=== PATIENT | female | born 1945 | race Caucasian/White ===

== ENCOUNTER 2022-02-23 13:27 | Emergency (ER) | payer MEDICARE, BC ==
[2022-02-23] MEDS ORDERED: SODIUM CHLORIDE 0.9% 1,000 ML IV STA (13:31)
[2022-02-23 13:39] VITALS: RESP 18
[2022-02-23] MEDS ORDERED: PANTOPRAZOLE 40 MG/10 ML VIAL IVP STA (13:40)
[2022-02-23] MEDS ORDERED: Kcentra PER PHARMACY 1 EACH MISC MISCELLANE PRN (13:59)
[2022-02-23 14:04] LABS: Anisocytosis Slight; Basophils % (A) 0 %; Eosinophils % (A) 0 %; Hypochromasia Marked; Lymphocytes # (A) 0.7 k/uL (1.0-4.8); Lymphocytes % (A) 6 %; MCH 26.9 pg (25.0-35.0); MCV 92.7 fL (80.0-100.0); Mean Platelet Volume 9.6; Monocytes # (A) 0.8 k/uL (0-1.0); Monocytes % (A) 7 %; Neutrophils # (A) 10.4 k/uL (1.3-7.7); Neutrophils % (A) 84 %; Platelet Count 236 k/uL (150-450); RDW 16.4 % (11.5-15.5); WBC 12.4 k/uL (3.8-10.6)
[2022-02-23 14:06] LABS: HCT 18.6 % (34.0-46.0); HGB 5.4 gm/dL (11.4-16.0)
[2022-02-23 14:08] LABS: Albumin 3.3 g/dL (3.5-5.0); Calcium 7.8 mg/dL (8.4-10.2); Magnesium 1.6 mg/dL (1.6-2.3); Total Bilirubin 0.8 mg/dL (0.2-1.3)
[2022-02-23 14:09] LABS: INR 2.8 (<1.2); Partial Thromboplastin Time 25.1 sec (22.0-30.0); Prothrombin Time 27.7 sec (9.0-12.0)
[2022-02-23 14:10] LABS: Potassium 6.4 mmol/L (3.5-5.1)
[2022-02-23 14:29] VITALS: TEMP 97.3
--- NOTE | 2022-02-23 14:41 | XR ---
EXAMINATION TYPE: XR chest 1V portable DATE OF EXAM: 02/23/2022 COMPARISON: NONE HISTORY: Short of breath TECHNIQUE: Single view FINDINGS: Heart is normal. Lungs are clear of infiltrate. There are sternal wires. There are chest le ads. Costophrenic angles show slight blunting on the left side. Thoracic aorta is atheromatous. IMPRESSION: Mild pleural reaction at the left lung base. No heart failure.
[2022-02-23] MEDS ORDERED: EMPTY BAG 1 BAG with HUMAN PROTHROMBIN COMPLX 2,140 UNIT IV ONE (15:00)
[2022-02-23] MEDS ORDERED: HUMAN PROTHROMBIN COMPLX 500 UNIT/16 ML VIAL IV ONE (15:30)
--- NOTE | 2022-02-23 15:35 | CT ---
EXAMINATION TYPE: CT brain wo con DATE OF EXAM: 02/23/2022 COMPARISON: None HISTORY: Pt found hypotensive and altered CT DLP: 1173.4 mGycm Automated exposure control for dose reduction was used. Ventricles have normal size. There is no mass effect or midline shift. There is no sign of intracrani al hemorrhage. Calvarium is intact. There is normal aeration of the mastoid sinuses. IMPRESSION: Mild cerebral atrophy. No acute intracranial abnormality.
[2022-02-23 15:38] VITALS: PULSE 56
--- NOTE | 2022-02-23 15:41 | CT ---
EXAMINATION TYPE: CT abdomen pelvis wo con DATE OF EXAM: 02/23/2022 COMPARISON: None HISTORY: GI bleed, unable to administer contrast due to 12 GFR. Pt found hypotensive and altered CT DLP: 1365.4 mGycm Automated exposure control for dose reduction was used. Images obtained from the diaphragm to the floor the pelvis with no contrast. There is some patchy atelectasis at the lung bases. Heart is enlarged. No pericardial effusion. Liver spleen and stomach pancreas appear intact. There are calcified gallstones. The bile ducts are not di lated. There is no adrenal mass. Kidneys show normal size and contour. There is no hydronephrosis. The urete rs are not dilated. There is no retroperitoneal adenopathy. There is bilateral hip prosthesis with me loi artifact. Bladder distends smoothly. No pelvic mass. There are multiple sigmoid diverticula. No s ign of diverticulitis. Appendix is posterior and appears normal. Lumbar vertebra show no compression fracture. There is mild subluxation deformity at L4-5 and L3-4. T he bony pelvis is intact. No mesenteric edema. No ascites or free air. No bowel obstruction. IMPRESSION: Colonic diverticulosis. No diverticulitis. Normal appendix. Fibrotic changes and atelectasis at the l will bases.
--- NOTE | 2022-02-23 16:02 | ED ---
General Adult HPI - General Chief complaint: GI Bleed Stated complaint: GI Bleed Time Seen by Provider: 02/23/22 13:31 Source: patient, RN notes reviewed, old records reviewed Mode of arrival: ambulatory Limitations: no limitations - History of Present Illness Initial comments: Patient is a 76 year old female with past medical history remarkable for atrial fibrillation on Eliquis presents to the emergency department over concern for GI bleed. Patient was found at home by family members. She had dark stools. She was found on the ground for an unknown period of time, possibly day. She denies hitting her head. She was weak and tired upon arrival. Blood pressure was in the 80s or 90s systolic. Difficult pulse ox and therefore patient was placed on a nonrebreather. She denies any other acute complaint at this time and current chest pain, abdominal pain, nausea, vomiting. Denies any history of GI bleed. Denies any chest pain, shortness breath. Was vaccinated for COVID-19. No other acute complaints at this time. - Related Data Home Medications Medication Instructions Recorded Confirmed Acetaminophen [Tylenol 8 Hour] 650 mg PO Q8H PRN 02/23/22 02/23/22 Apixaban [Eliquis] 5 mg PO BID 02/23/22 02/23/22 Aspirin EC [Ecotrin Low Dose] 81 mg PO DAILY 02/23/22 02/23/22 Atorvastatin [Lipitor] 10 mg PO MOWEFR 02/23/22 02/23/22 Bumetanide [Bumex] 1 mg PO BID 02/23/22 02/23/22 Carvedilol [Coreg] 12.5 mg PO BID 02/23/22 02/23/22 Dronedarone HCl [Multaq] 400 mg PO PC-BID 02/23/22 02/23/22 Fluticasone/Umeclidin/Vilanter 1 puff INHALATION RT-DAILY 02/23/22 02/23/22 [Trelegy Ellipta 100-62.5-25] Loratadine [Claritin] 10 mg PO DAILY 02/23/22 02/23/22 Losartan Potassium [Cozaar] 50 mg PO BID 02/23/22 02/23/22 Magnesium Gluconate [Magonate] 500 mg PO DAILY 02/23/22 02/23/22 Omeprazole 20 mg PO DAILY PRN 02/23/22 02/23/22 Sertraline [Zoloft] 25 mg PO DAILY 02/23/22 02/23/22 metFORMIN HCL 500 mg PO AC-LUNCH 02/23/22 02/23/22 Allergies Allergy/AdvReac Type Severity Reaction Status Date / Time No Known Allergies Allergy Verified 02/23/22 15:44 Review of Systems ROS Statement: Those systems with pertinent positive or pertinent negative responses have been documented in the HPI. Review of Systems: CONST: Denies fever EYES: Denies blurry vision ENT: Denies nasal congestion C/V: Denies Chest pain RESP: Denies shortness of breath GI: Denies abdominal pain : Denies dysuria SKIN: Denies rash. MSK: Denies joint pain. NEURO: Denies headache ROS Other: All systems not noted in ROS Statement are negative. Past Medical History Past Medical History: Atrial Fibrillation, Heart Failure, Diabetes Mellitus Additional Past Medical History / Comment(s): familial tremors, Past Surgical History: Coronary Bypass/CABG, Orthopedic Surgery Additional Past Surgical History / Comment(s): hip surgery Past Psychological History: No Psychological Hx Reported Smoking Status: Former smoker Past Alcohol Use History: None Reported Past Drug Use History: None Reported General Exam - General Exam Comments Initial Comments: General: Appears in no acute distress. HEAD: Normal with no signs of head trauma. EYES: PERRLA, EOMI, conjunctiva normal, no discharge. And femoral bilaterally ENT: Hearing grossly intact, normal oropharynx. RESPIRATORY: Clear breath sounds bilaterally. No wheezes, rales, or rhonchi. C/V: Regular rate and rhythm. S1 and S2 auscultated, no edema, peripheral pulses 2+ and intact throughout. Patient is mildly hypertensive with systolics in the 90s. ABD: Abd is soft, nontender, nondistended. Rectal exam revealed no gross blood. Brown stool present. EXT: Normal range of motion, no obvious deformity SKIN: No rashes or lesions observed on exposed skin. NEURO: Alert and oriented 4. No focal deficits. NIH is 0. GCS is 15. Limitations: no limitations Course Vital Signs 02/23/22 02/23/22 02/23/22 13:31 14:22 14:27 Temperature 97.3 F L Pulse Rate 55 L 53 L 58 L Respiratory 18 18 18 Rate Blood Pressure 97/81 86/32 77/35 O2 Sat by Pulse 90 L 91 L Oximetry 02/23/22 02/23/22 02/23/22 14:44 15:00 15:25 Temperature Pulse Rate 56 L 56 L 55 L Respiratory 18 18 18 Rate Blood Pressure 78/49 91/45 80/39 O2 Sat by Pulse 91 L 90 L 91 L Oximetry 02/23/22 02/23/22 15:37 16:26 Temperature Pulse Rate 56 L 56 L Respiratory 18 18 Rate Blood Pressure 78/39 102/54 O2 Sat by Pulse 91 L 90 L Oximetry Medical Decision Making - Medical Decision Making Based on the patient's presentation physical exam, I'm concerned for possible GI bleed for this patient. She is receiving IV fluids at this time. Rectal exam was unremarkable, however she'll be given K Centron we will obtain a proper workup. CT head will also be obtained she is on AND was found down on the ground. Abdomen and pelvis CT will be obtained as well. She was in agreement this plan. We will continue IV fluids at this time and continue to monitor vital signs. Patient was administerred Kcentra to reverse her Eliquis over concern for GI bleed. EKG showed no signs of acute ischemia. Laboratory studies remarkable for hemoglobin of 5.4. Mild leukocytosis of 12.4. Initial potassium is hemolyzed and repeat is 5.5. Patient has an AK I with a creatinine 3. 4 AM be one of 86 likely secondary to bleeding. Lactic acid is 8.2, likely secondary to the GI bleed, not infectious etiology. LFTs are mildly elevated. Creatinine kinase is elevated mildly to 315. Troponin is negative. Occult blood is positive. Covid, flu or negative. Chest x-ray revealed no acute cardio pulmonary process. Intercranial CT showed no signs of acute intracranial process. CT of the abdomen and pelvis had to be performed without contrast due to kidney function, and revealed no signs of acute process. At this time, vital signs remain slightly more stable. However patient's blood pressure did drop from 90 systolic to 80 systolic. I discussed with the patient would like to transfer her to [facility] as we do not GI coverage here. She was in agreement this plan. I did touch base with our on-call surgeon, Dr. Pollard who recommended starting MTP on her, and patient is already received 2 units of blood. This is to ensure she was given enough to have with her to her transfer destination. There were agreement with this plan. MTP was activated. She'll be sent with at least 4 units of packed red blood cells. She has received a total of 3 units packed red blood cells here in the department. FFP and platelets will also be administered. There were in agreement with this plan. I discussed with the transfer facility[facility] who accepted the patient. accepting physician is Dr. Corrales. She'll go via [facility] ambulance with lights and sirens. Patient be transferred in serious condition. Vital signs remained stable with systolics between 80 and 90 at this time.Patient was sent with additional units of packed red blood cells, 4 total, 4 units of plasma, and patient is actively receiving 1 unit of platelets, as this is all the blood bank has at this time. Prior to transfer, patient received 3 units of packed red blood cells. - Lab Data Result diagrams: 02/23/22 13:47 02/23/22 14:32 Lab Results 02/23/22 02/23/22 02/23/22 Range/Units 13:47 13:47 13:47 WBC 12.4 H (3.8-10.6) k/uL RBC 2.00 L (3.80-5.40) m/uL Hgb 5.4 L* (11.4-16.0) gm/dL Hct 18.6 L* (34.0-46.0) % MCV 92.7 (80.0-100.0) fL MCH 26.9 (25.0-35.0) pg MCHC 29.0 L (31.0-37.0) g/dL RDW 16.4 H (11.5-15.5) % Plt Count 236 (150-450) k/uL MPV 9.6 Neutrophils % 84 % Lymphocytes % 6 % Monocytes % 7 % Eosinophils % 0 % Basophils % 0 % Neutrophils # 10.4 H (1.3-7.7) k/uL Lymphocytes # 0.7 L (1.0-4.8) k/uL Monocytes # 0.8 (0-1.0) k/uL Eosinophils # 0.0 (0-0.7) k/uL Basophils # 0.0 (0-0.2) k/uL Hypochromasia Marked Anisocytosis Slight PT 27.7 H (9.0-12.0) sec INR 2.8 H (<1.2) APTT 25.1 (22.0-30.0) sec Sodium 137 (137-145) mmol/L Potassium 6.4 H* (3.5-5.1) mmol/L Chloride 107 (98-107) mmol/L Carbon Dioxide 14 L (22-30) mmol/L Anion Gap 16 mmol/L BUN 86 H (7-17) mg/dL Creatinine 3.48 H (0.52-1.04) mg/dL Est GFR (CKD-EPI)AfAm 14 (>60 ml/min/1.73 sqM) Est GFR (CKD-EPI)NonAf 12 (>60 ml/min/1.73 sqM) Glucose 116 H (74-99) mg/dL Lactic Ac Sepsis Rflx Plasma Lactic Acid Gabino (0.7-2.0) mmol/L Calcium 7.8 L (8.4-10.2) mg/dL Magnesium 1.6 (1.6-2.3) mg/dL Total Bilirubin 0.8 (0.2-1.3) mg/dL AST 126 H (14-36) U/L ALT 75 H (4-34) U/L Alkaline Phosphatase 25 L (38-126) U/L Creatine Kinase 315 H (30-135) U/L Troponin I (0.000-0.034) ng/mL Total Protein 6.0 L (6.3-8.2) g/dL Albumin 3.3 L (3.5-5.0) g/dL Amylase 108 (30-110) U/L Lipase 270 (23-300) U/L Stool Occult Blood (Negative) Influenza Type A (PCR) (Not Detectd) Influenza Type B (PCR) (Not Detectd) RSV (PCR) (Not Detectd) SARS-CoV-2 (PCR) (Not Detectd) Blood Type Blood Type Confirm Blood Type Recheck Bld Type Recheck Status Antibody Screen Crossmatch Transfuse Plasma Transfuse Platelets Spec Expiration Date 02/23/22 02/23/22 02/23/22 Range/Units 13:47 13:47 13:47 WBC (3.8-10.6) k/uL RBC (3.80-5.40) m/uL Hgb (11.4-16.0) gm/dL Hct (34.0-46.0) % MCV (80.0-100.0) fL MCH (25.0-35.0) pg MCHC (31.0-37.0) g/dL RDW (11.5-15.5) % Plt Count (150-450) k/uL MPV Neutrophils % % Lymphocytes % % Monocytes % % Eosinophils % % Basophils % % Neutrophils # (1.3-7.7) k/uL Lymphocytes # (1.0-4.8) k/uL Monocytes # (0-1.0) k/uL Eosinophils # (0-0.7) k/uL Basophils # (0-0.2) k/uL Hypochromasia Anisocytosis PT (9.0-12.0) sec INR (<1.2) APTT (22.0-30.0) sec Sodium (137-145) mmol/L Potassium (3.5-5.1) mmol/L Chloride (98-107) mmol/L Carbon Dioxide (22-30) mmol/L Anion Gap mmol/L BUN (7-17) mg/dL Creatinine (0.52-1.04) mg/dL Est GFR (CKD-EPI)AfAm (>60 ml/min/1.73 sqM) Est GFR (CKD-EPI)NonAf (>60 ml/min/1.73 sqM) Glucose (74-99) mg/dL Lactic Ac Sepsis Rflx Plasma Lactic Acid Gabino 8.2 H* (0.7-2.0) mmol/L Calcium (8.4-10.2) mg/dL Magnesium (1.6-2.3) mg/dL Total Bilirubin (0.2-1.3) mg/dL AST (14-36) U/L ALT (4-34) U/L Alkaline Phosphatase (38-126) U/L Creatine Kinase (30-135) U/L Troponin I <0.012 (0.000-0.034) ng/mL Total Protein (6.3-8.2) g/dL Albumin (3.5-5.0) g/dL Amylase (30-110) U/L Lipase (23-300) U/L Stool Occult Blood (Negative) Influenza Type A (PCR) (Not Detectd) Influenza Type B (PCR) (Not Detectd) RSV (PCR) (Not Detectd) SARS-CoV-2 (PCR) (Not Detectd) Blood Type AB Positive Blood Type Confirm Blood Type Recheck No Previous Record Bld Type Recheck Status CABO Indicated Antibody Screen NEGATIVE Crossmatch See Detail Transfuse Plasma Transfuse Platelets Spec Expiration Date 02/26/2022 - 234602/23/22 02/23/22 02/23/22 Range/Units 13:47 13:58 14:28 WBC (3.8-10.6) k/uL RBC (3.80-5.40) m/uL Hgb (11.4-16.0) gm/dL Hct (34.0-46.0) % MCV (80.0-100.0) fL MCH (25.0-35.0) pg MCHC (31.0-37.0) g/dL RDW (11.5-15.5) % Plt Count (150-450) k/uL MPV Neutrophils % % Lymphocytes % % Monocytes % % Eosinophils % % Basophils % % Neutrophils # (1.3-7.7) k/uL Lymphocytes # (1.0-4.8) k/uL Monocytes # (0-1.0) k/uL Eosinophils # (0-0.7) k/uL Basophils # (0-0.2) k/uL Hypochromasia Anisocytosis PT (9.0-12.0) sec INR (<1.2) APTT (22.0-30.0) sec Sodium (137-145) mmol/L Potassium (3.5-5.1) mmol/L Chloride (98-107) mmol/L Carbon Dioxide (22-30) mmol/L Anion Gap mmol/L BUN (7-17) mg/dL Creatinine (0.52-1.04) mg/dL Est GFR (CKD-EPI)AfAm (>60 ml/min/1.73 sqM) Est GFR (CKD-EPI)NonAf (>60 ml/min/1.73 sqM) Glucose (74-99) mg/dL Lactic Ac Sepsis Rflx Plasma Lactic Acid Gabino (0.7-2.0) mmol/L Calcium (8.4-10.2) mg/dL Magnesium (1.6-2.3) mg/dL Total Bilirubin (0.2-1.3) mg/dL AST (14-36) U/L ALT (4-34) U/L Alkaline Phosphatase (38-126) U/L Creatine Kinase (30-135) U/L Troponin I (0.000-0.034) ng/mL Total Protein (6.3-8.2) g/dL Albumin (3.5-5.0) g/dL Amylase (30-110) U/L Lipase (23-300) U/L Stool Occult Blood Positive H (Negative) Influenza Type A (PCR) Not Detected (Not Detectd) Influenza Type B (PCR) Not Detected (Not Detectd) RSV (PCR) Not Detected (Not Detectd) SARS-CoV-2 (PCR) Not Detected (Not Detectd) Blood Type AB Positive Blood Type Confirm Blood Type Recheck AB Pos Bld Type Recheck Status No Antibody Screen NEGATIVE Crossmatch See Detail Transfuse Plasma Transfuse Platelets Spec Expiration Date 02/26/2022 - 232702/23/22 02/23/22 02/23/22 Range/Units 14:32 14:32 14:45 WBC (3.8-10.6) k/uL RBC (3.80-5.40) m/uL Hgb (11.4-16.0) gm/dL Hct (34.0-46.0) % MCV (80.0-100.0) fL MCH (25.0-35.0) pg MCHC (31.0-37.0) g/dL RDW (11.5-15.5) % Plt Count (150-450) k/uL MPV Neutrophils % % Lymphocytes % % Monocytes % % Eosinophils % % Basophils % % Neutrophils # (1.3-7.7) k/uL Lymphocytes # (1.0-4.8) k/uL Monocytes # (0-1.0) k/uL Eosinophils # (0-0.7) k/uL Basophils # (0-0.2) k/uL Hypochromasia Anisocytosis PT (9.0-12.0) sec INR (<1.2) APTT (22.0-30.0) sec Sodium (137-145) mmol/L Potassium 5.5 H (3.5-5.1) mmol/L Chloride (98-107) mmol/L Carbon Dioxide (22-30) mmol/L Anion Gap mmol/L BUN (7-17) mg/dL Creatinine (0.52-1.04) mg/dL Est GFR (CKD-EPI)AfAm (>60 ml/min/1.73 sqM) Est GFR (CKD-EPI)NonAf (>60 ml/min/1.73 sqM) Glucose (74-99) mg/dL Lactic Ac Sepsis Rflx Y Plasma Lactic Acid Gabino (0.7-2.0) mmol/L Calcium (8.4-10.2) mg/dL Magnesium (1.6-2.3) mg/dL Total Bilirubin (0.2-1.3) mg/dL AST (14-36) U/L ALT (4-34) U/L Alkaline Phosphatase (38-126) U/L Creatine Kinase (30-135) U/L Troponin I (0.000-0.034) ng/mL Total Protein (6.3-8.2) g/dL Albumin (3.5-5.0) g/dL Amylase (30-110) U/L Lipase (23-300) U/L Stool Occult Blood (Negative) Influenza Type A (PCR) (Not Detectd) Influenza Type B (PCR) (Not Detectd) RSV (PCR) (Not Detectd) SARS-CoV-2 (PCR) (Not Detectd) Blood Type Blood Type Confirm AB Positive Blood Type Recheck Bld Type Recheck Status Antibody Screen Crossmatch Transfuse Plasma Transfuse Platelets Spec Expiration Date 02/23/22 02/23/22 Range/Units 15:56 15:58 WBC (3.8-10.6) k/uL RBC (3.80-5.40) m/uL Hgb (11.4-16.0) gm/dL Hct (34.0-46.0) % MCV (80.0-100.0) fL MCH (25.0-35.0) pg MCHC (31.0-37.0) g/dL RDW (11.5-15.5) % Plt Count (150-450) k/uL MPV Neutrophils % % Lymphocytes % % Monocytes % % Eosinophils % % Basophils % % Neutrophils # (1.3-7.7) k/uL Lymphocytes # (1.0-4.8) k/uL Monocytes # (0-1.0) k/uL Eosinophils # (0-0.7) k/uL Basophils # (0-0.2) k/uL Hypochromasia Anisocytosis PT (9.0-12.0) sec INR (<1.2) APTT (22.0-30.0) sec Sodium (137-145) mmol/L Potassium (3.5-5.1) mmol/L Chloride (98-107) mmol/L Carbon Dioxide (22-30) mmol/L Anion Gap mmol/L BUN (7-17) mg/dL Creatinine (0.52-1.04) mg/dL Est GFR (CKD-EPI)AfAm (>60 ml/min/1.73 sqM) Est GFR (CKD-EPI)NonAf (>60 ml/min/1.73 sqM) Glucose (74-99) mg/dL Lactic Ac Sepsis Rflx Plasma Lactic Acid Gabino (0.7-2.0) mmol/L Calcium (8.4-10.2) mg/dL Magnesium (1.6-2.3) mg/dL Total Bilirubin (0.2-1.3) mg/dL AST (14-36) U/L ALT (4-34) U/L Alkaline Phosphatase (38-126) U/L Creatine Kinase (30-135) U/L Troponin I (0.000-0.034) ng/mL Total Protein (6.3-8.2) g/dL Albumin (3.5-5.0) g/dL Amylase (30-110) U/L Lipase (23-300) U/L Stool Occult Blood (Negative) Influenza Type A (PCR) (Not Detectd) Influenza Type B (PCR) (Not Detectd) RSV (PCR) (Not Detectd) SARS-CoV-2 (PCR) (Not Detectd) Blood Type Blood Type Confirm Blood Type Recheck Bld Type Recheck Status Antibody Screen Crossmatch Transfuse Plasma 02/23/22 Transfuse Platelets 02/23/22 Spec Expiration Date - EKG Data -: EKG Interpreted by Me EKG Comments: 12-lead Electrocardiogram Interpretation Note EKG was reviewed and interpreted by myself. 12-lead ECG performed at 1343 is interpreted by me as revealing normal sinus rhythm at a rate of 53 beats per minute. Latimer is normal. AK interval is 206 ms, QRS duration is 92 ms, QTc is 383 ms.. There were no ST or T wave abnormalities to suggest myocardial ischemia or injury. R wave progression across the precordium was satisfactory. By my interpretation this EKG is non-diagnostic for acute ischemia. Critical Care Time Critical Care Time: Yes Total Critical Care Time: 35 Critical Care Time: Upon my evaluation, this patient had a high probability of imminent or life- threatening deterioration due to GI bleed, MTP activation, which required my direct attention, intervention, and personal management. I have personally provided 35 minutes of critical care time exclusive of time spent on separately billable procedures. Time includes review of laboratory da ta, radiology results, discussion with consultants, and monitoring for potential decompensation. Interventions were performed as documented in my note. Disposition Clinical Impression: GI bleed, KAVYA (acute kidney injury), Blood loss anemia, Hyperkalemia, Hemorrhagic shock, Hypotension, Lactic acidosis Disposition: OTHER INSTITUTION NOT DEFINED Condition: Serious Referrals: Nonstaff,Physician [Primary Care Provider] - 1-2 days Time of Disposition: 16:10 - Out of Hospital Transfer - Req. Specs Out of Hospital Transfer - Requested Specifics: Other Emergency Center (transfer to [facility] for continuity of care, escalation of care.)
[2022-02-23 16:30] VITALS: BP 102/54
== END 2022-02-23 17:02 | disposition other institution (70) ==
LOC: EC 13:27
DX: K92.2 Gastrointestinal hemorrhage, unspecified (principal); D50.0 Iron deficiency anemia secondary to blood loss (chronic); E87.5 Hyperkalemia; E87.2 Acidosis; N17.9 Acute kidney failure, unspecified; I95.9 Hypotension, unspecified; Z20.822 Contact with and (suspected) exposure to COVID-19; E11.9 Type 2 diabetes mellitus without complications; I50.9 Heart failure, unspecified; I48.91 Unspecified atrial fibrillation; Z79.01 Long term (current) use of anticoagulants; Z79.84 Long term (current) use of oral hypoglycemic drugs; Z79.82 Long term (current) use of aspirin; Z79.899 Other long term (current) drug therapy; Z87.891 Personal history of nicotine dependence; Z95.1 Presence of aortocoronary bypass graft
CPT/HCPCS: 99291 ×2; 96374 ×2; 36415; 93005; 86900; 86901; 80053; 82150; 82550; 83605; 83690; 83735; 84132; 84484; 85025; 85610; 85730; 86850; 86920; 82272; 87040; 87636; 71045; 70450; 74176; 36430; P9016; P9059; P9073; J7168